=== PATIENT | female | born 1965 | race Caucasian/White ===

== ENCOUNTER 2016-09-17 17:34 | Emergency (ER) | payer SELFPAY ==
--- NOTE | 2016-09-18 13:58 | ER ---
ADMIT: 09/17/2016 RM/LOC: ER [facility] MR#: [id number] [address] [id number] [address] [place] [address] Emergency Room Report SEX: F AGE: 51 : 1965 DATE: 09/17/2016 BRIEF ADDENDUM: Please see my T-sheet for complete review of systems, past medical history, and physical exam. CHIEF COMPLAINT: Injury to left toe. HISTORY OF PRESENT ILLNESS: A 51-year-old female, who presents after she stubbed her toe last night. Primarily indicates she has pain over the left 5th toe. States she was walking at home barefoot when she caught her toe on a heavy bag. States she had a popping sensation and swelling. Has been managing this with ice and ibuprofen for pain. She has a lot of pain with movement. Difficulty walking. Denies any ankle pain. COURSE IN THE EMERGENCY ROOM: The patient was seen and examined. Afebrile and nontoxic, in no acute distress. She does have some tenderness over the base of the 5th as well as significant swelling and ecchymosis of the left 5th toe. She has limited range of motion secondary to pain. No obvious deformities or nail injury. Ankle is nontender. Has a good range of motion. Difficult to appreciate cap refill in the left little toe secondary to swelling and discoloration. However, it is warm. Data is limited by pain, however she is able to bear weight to get into the room today. Skin is warm and dry. No obvious lacerations or other injuries. Did proceed to get x-ray studies of the left foot given her 5th metatarsal tenderness. Negative for any acute fractures or dislocations. She was given one Percocet 5/325 tab as well as Zofran 4 mg ODT for pain control prior to discharge. IMPRESSION: Left MTP 5th toe sprain. DISPOSITION: The patient discharged to use Tylenol or ibuprofen for pain. Rest ice, compress, and elevate. Continue home medications. Return with worsening signs or symptoms. Follow up with primary care provider. Activity as tolerated. Questions sought and answered to the best of my ability and to the patient's satisfaction. Discharged in stable condition. TIM Ford / Donald Mijares MD / franciscol JOB #: [id number] CC: Donald Mijares MD, Attending Physician Haja Mathew MD, Family Physician
== END 2016-09-17 19:02 | disposition home or self-care (01) ==
LOC: ER 17:34
DX: S93.525A Sprain of metatarsophalangeal joint of left lesser toe(s), initial encounter (principal); W23.0XXA Caught, crushed, jammed, or pinched between moving objects, initial encounter; Y92.009 Unspecified place in unspecified non-institutional (private) residence as the place of occurrence of the external cause